=== PATIENT | female | born 1985 | race Two or more races ===

== ENCOUNTER 2016-07-31 13:35 | Observation (INO) | payer MEDICAID ==
[~2016-07-31] VITALS: Ht 160 cm; Wt 68.0 kg
[2016-07-31] VITALS (7 sets, daily range): BP systolic 101–118; BP diastolic 57–77
[2016-07-31] MEDS ORDERED: LACT. RINGERS/OXYTOCIN 20UNITS 1,000 ML IV SCH ×2 (14:09)
[2016-07-31] MEDS ORDERED: LACTATED RINGER'S 1,000 ML IV SCH (14:09)
[2016-07-31] MEDS ORDERED: WITCH HAZEL-GLYCERIN PAD TOP PRN (14:15)
[2016-07-31] MEDS ORDERED: NALBUPHINE HCL 10 MG/1ml INJECTION IV PRN (14:15)
[2016-07-31] MEDS ORDERED: PROMETHAZINE HCL 25 MG/ML 1ML IV PRN (14:15)
[2016-07-31] MEDS ORDERED: DERMOPLAST 60ML BOTTLE TOP PRN (14:15)
[2016-07-31] MEDS ORDERED: PHISODERM TOP SOLN 240ML BTL TOP PRN (14:15)
[2016-07-31] MEDS ORDERED: TERBUTALINE SULFATE 1 MG/ML 1ML VIAL SC PRN (14:15)
[2016-07-31] MEDS ORDERED: LIDOCAINE 2%HCL (LOCAL ANESTH.) INJ 20ML MDV IJ PRN (14:15)
[2016-07-31 14:42] LABS: Basophils # (auto) 0 uL; Basophils % (auto) 0.5 % (0.0-2.0); DEFINITIVE VIEW TRANSMISSION; Eosinophils # (auto) 0 uL; Eosinophils % (auto) 0.3 % (0.0-7.0); Hematocrit 36.8 % (36.0-46.0); Hemoglobin 11.9 g/dL (12.2-16.2); Lymphocytes # (auto) 0.9 uL; Lymphocytes % (auto) 11.1 % (10.0-50.0); Mean Corpuscular Hemoglobin 26.6 pg (28.0-32.0); Mean Corpuscular Hgb Conc. 32.3 g/dL (32.0-36.0); Mean Corpuscular Volume 82.4 fL (80.0-100.0); Mean Platelet Volume 8.7 fL (7.4-10.4); Monocytes # (auto) 0.6 uL; Monocytes % (auto) 7.4 % (0.0-12.0); Neutrophils # (auto) 6.8 uL; Neutrophils % (auto) 80.7 % (37.0-80.0); Platelet Count (auto) 244 10^3/uL (140-450); Red Cell Distribution Width 15.2 % (11.6-16.0); White Blood Cell 8.4 10^3/uL (4.4-10.8)
[2016-07-31 14:57] LABS: INR 0.94 (0.9-1.15); Partial Thromboplastin Time 32.4 sec (22.64-33.71); Prothrombin Time 9.7 sec (9.37-12.3)
[2016-07-31 15:08] LABS: Albumin 2.6 g/dL (3.4-5.0); Calcium 7.5 mg/dL (8.5-10.1); Potassium 3.8 mmol/L (3.5-5.1)
[2016-07-31 15:13] LABS: BUN/Creatinine Ratio 13.7; Bilirubin, Total 0.4 mg/dL (0.2-1.0); Total Protein 6.3 g/dL (6.4-8.2)
[2016-07-31 15:15] LABS: Urine Bilirubin Negative (Negative); Urine Blood TRACE /uL (Negative); Urine Color Yellow (Yellow); Urine Glucose Normal (Normal); Urine Ketone Negative (Negative); Urine Nitrite Negative (Negative); Urine RBC 2 /hpf (0 - 4); Urine Squamous Epithelial Cell FEW /hpf (<5); Urine Urobilinogen Normal (Negative); Urine pH 7.5 (5.0-8.0)
[2016-07-31] MEDS ORDERED: CARBOPROST TROMETHAMINE 250 MCG/1ML VIAL IM PRN (16:00)
[2016-07-31] MEDS ORDERED: METHYLERGONOVINE MALEATE 0.2 MG/ML AMP IM PRN (16:00)
[2016-07-31] MEDS ORDERED: LACT. RINGERS/OXYTOCIN 20UNITS 500 ML IV ONE (17:32)
[2016-07-31] MEDS ORDERED: ACETAMINOPHEN 325 MG TAB PO PRN (17:45)
[2016-08-01 04:00] VITALS: BP 99/58
[2016-08-01] MEDS: IBUPROFEN 600 MG TAB PO PRN ×2 (07:27→19:58)
[2016-08-01 23:40] VITALS: BP 107/55
[2016-08-02 03:30] VITALS: BP 108/57
[2016-08-02] MEDS ORDERED: PRENCAP61 PO (07:14)
[2016-08-02] MEDS ORDERED: TETANUS-DIPTH-ACEL PERTUSSIS 0.5ML SYRG IM ONE (08:45)
[2016-08-02] MEDS ORDERED: INFLUENZA QUAD 2016-2017 0.5 ML SYRG IM ONE (08:45)
== END 2016-08-02 12:25 | disposition home or self-care (01) | DRG 560 ==
LOC: LDRP 13:35
PROVIDERS: ADMIT Obstetrics & Gynecology; ATTEND Obstetrics & Gynecology
DX: O62.9 Abnormality of forces of labor, unspecified (principal); Z37.0 Single live birth; Z3A.38 38 weeks gestation of pregnancy
CPT/HCPCS: 36415; 51702; 59025; 59409; 80053; 81001; 81002; 85025; 85049; 85610; 85730; 86850; 86900; 86901; 88307; 90471; 90472; 90715; 96365; G0378; J2590; 96366; 96372

== ENCOUNTER 2017-04-18 19:43 | Emergency (ER) | payer MEDICAID ==
[~2017-04-18] VITALS: Ht 165.1 cm; Wt 69.4 kg
[~2017-04-18 19:43] MED LIST: PRENCAP61 PO
[2017-04-18] MEDS ORDERED: ACETAMINOPHEN 500 MG TAB PO ONE ×2 (19:50→20:30)
[2017-04-18 22:45] VITALS: BP 106/59
[2017-04-18] MEDS ORDERED: cefTRIAXone SOD 1,000 MG VL IM ONE (23:00)
== END 2017-04-18 23:10 | disposition home or self-care (01) ==
LOC: ER 19:58
DX: N61.0 Mastitis without abscess (principal)
CPT/HCPCS: 96372; 99283; J0696